=== PATIENT | female | born 2000 | race Caucasian/White ===

== ENCOUNTER 2020-09-30 14:00 | Emergency (ER) | payer MEDICAID ==
[~2020-09-30] VITALS: Ht 154.9 cm; Wt 57.6 kg
[2020-09-30 14:05] VITALS: BP_SYST 120
[2020-09-30 14:35] VITALS: BP_SYST 120
== END 2020-09-30 14:36 | disposition home or self-care (01) ==
LOC: SED 14:00
DX: Z02.89 Encounter for other administrative examinations (principal)
CPT/HCPCS: 99283